=== PATIENT | male | born 1955 | race Two or more races ===

== ENCOUNTER 2018-08-03 09:51 | Outpatient (CLI) | payer OTHER | END 2018-08-03 10:08 | disposition home or self-care (01) | LOC: LAB 09:51 | DX: D64.89 Other specified anemias (principal); R80.8 Other proteinuria; E55.9 Vitamin D deficiency, unspecified; D51.8 Other vitamin B12 deficiency anemias; N40.0 Benign prostatic hyperplasia without lower urinary tract symptoms; Z79.4 Long term (current) use of insulin; E11.40 Type 2 diabetes mellitus with diabetic neuropathy, unspecified ==